=== PATIENT | male | born 1945 | race Caucasian/White ===

== ENCOUNTER 2018-05-23 11:57 | Outpatient (CLI) | payer OTHER, SELFPAY ==
[2018-05-23 13:44] LABS: Anion Gap 8.9 mmol/L (3-11); BUN 19 mg/dL (7-18); CO2 30.1 mmol/L (21.0-32.0); CREATININE 1.14 mg/dL (0.70-1.30); Calcium 9.1 mg/dL (8.5-10.1); Chloride 102 mmol/L (98-107); Cholesterol 157 mg/dL (50-200); Glucose 94 mg/dL (70-100); HDL Cholesterol 49 mg/dL (40-60); LDL CHOLESTEROL 87 mg/dL (<100); Potassium 3.8 mmol/L (3.5-5.1); Sodium 141 mmol/L (136-145); Triglyceride 126 mg/dL (30-150)
== END 2018-05-23 12:17 ==
PROVIDERS: PCP Family Medicine; Visit Provider Family Medicine
DX: I10 Essential (primary) hypertension (principal); E78.5 Hyperlipidemia, unspecified
CPT/HCPCS: 36415; 80048; 80061; 83721

== ENCOUNTER 2018-05-28 00:05 | Outpatient (CLI) | payer OTHER, SELFPAY ==
--- NOTE | 2018-05-28 07:16 | MERGEMPI_ITS ---
*[facility]* *[facility]* [address] [place] [address] Myocardial Perfusion Imaging - SPECT Ezio protocol Date of study: 05/28/2018 *PATIENT PRESENTATION* Height: 167.6cm (66in) Blood Pressure: Weight: 83.2kg (183lb) BSA: 1.99m^2 Referring physician: Boyd Marroquin Ordering physician: Saleem Vazquez Impressions: Normal study after maximal exercise. Summary: 1. Myocardial perfusion imaging: No myocardial perfusion defects noted. 2. The calculated left ventricular ejection fraction after stress: 50%. LV global systolic function is normal. No left ventricular regional motion abnormality. 3. Stress ECG conclusions: The stress ECG is negative. Mackey treadmill score: 7. This score predicts a low risk of cardiac events. 4. Stress: The target heart rate was achieved. The heart rate response to stress is exaggerated. There is a normal resting blood pressure with an appropriate response to stress. Exercise capacity is average for age. Indication: R07.9, Appropriate Use Criteria: A (Appropriate). History: REASON FOR VISIT: FOR PAST 3 WEEKS PATIENT HAS BEEN EXPERIENCING INTERMITTENT PAIN INBETWEEN HIS SHOULDER BLADES, PT IS CONCERNED ABOUT HIS SIGNIFICANT FAMILY HISTORY FOR CARDIAC DISEASE. HIS FATHER HAD SEVERAL NV'S BEFORE HE AT AGE 63 YEARS. HE REPORTS THIS IS WHY HE REQUESTED THIS STRESS TEST FROM HIS PCP. Risk factors: FORMER SMOKER QUIT 40 YEARS AGO. Family history of coronary artery disease. Hypertension. Dyslipidemia. ALLERGIES: NO KNOWN DRUG ALLERGIES. MEDICATIONS: HYDROCHLOROTHIAZIDE 12.5 MG DAILY. PRAVASTATIN 20 MG DAILY. OMEPRAZOLE 40 MG DAILY. Imaging Technique: Protocol: Ezio protocol. Acquisition: Gated SPECT; 1 day - rest/stress. The patient was imaged in the supine position. Attenuation correction used. Isotope administration: - Rest. Tc[99m]-sestamibi. Dose: 10.4mCi. Injection time: 08:20 AM. Injection to stress time: 00:45. - Stress. Tc[99m]-sestamibi. Dose: 32.1mCi. Injection time: 10:35 AM. 1-2 min before end of exercise Baseline ECG: SINUS RHYTHM. HR 61 BPM. Normal ECG. Stress protocol: + +---+ + !Stage !HR !BP (mmHg) ! + +---+ + !Baseline supine !61 !122/76 (91) ! + +---+ + !Baseline standing !69 !145/74 (98) ! + +---+ + !Stage I; 1.7mph, 10degrees; 3 min !118!142/72 (95) ! + +---+ + !Stage II; 2.5mph, 12degrees; 3 min !138!145/74 (98) ! + +---+ + !Stage III; 3.4mph, 14degrees; 3 min!141! ! + +---+ + !Immediate post stress !138!146/78 (101)! + +---+ + !Recovery; 3 min !90 !150/84 (106)! + +---+ + !Recovery; 6 min !80 !154/86 (109)! + +---+ + * Stress results: Maximal heart rate during stress was 156bpm (105% of maximal predicted heart rate). The maximal predicted heart rate was 148bpm. The target heart rate was achieved. The heart rate response to stress is exaggerated. There is a normal resting blood pressure with an appropriate response to stress. The rate-pressure product for the peak heart rate and blood pressure was 25095xu Hg/min. Exercise capacity is average for age. Stress ECG: TREADMILL PORTION OF STRESS TEST ENDED IN 7 MINUTES & 1 SECOND BECAUSE OF FATIGUE. NORMAL HEART RATE AND BLOOD PRESSURE RESPONSE TO EXERCISE. MAX HR = 156 % OF TARGET = 105 NO ECTOPY. APPROXIMATE METS ACHIEVED = 8.60 NO [address]GINA. NO SIGNIFICANT ST SEGMENT CHANGES AVERAGE FUNCTIONAL CAPACITY FOR EXERCISE. The stress ECG is negative. Mackey treadmill score: 7. This score predicts a low risk of cardiac events. Myocardial perfusion: Imaging information: gated. Image quality reduced due to diaphragmatic attenuation. Left ventricular size is normal. No myocardial perfusion defects noted. Ventricular Function (Wall Motion): The calculated left ventricular ejection fraction after stress: 50%. LV global systolic function is normal. No left ventricular regional motion abnormality. Study data: Boyd Marroquin MD supervised and was readily available during the procedure. This study was interpreted by [facility]. Study status: Routine. Consent: The risks, benefits, and alternatives to the procedure were explained to the patient and informed consent was obtained. Procedure: Initial setup. A baseline ECG was recorded. Surface ECG leads and manual cuff blood pressure measurements were monitored. Heart sounds: Normal. Lung sounds: Normal. Treadmill exercise testing was performed using the Ezio protocol. Study completion: All catheters inserted during the procedure were removed. The patient tolerated the procedure well and was discharged from the lab. Discharge: The patient left the laboratory in stable condition. Birthdate: Patient birthdate: 1945. Sex: Gender: male. Study date: Study date: 05/28/2018. Study time: 07:16 AM. Signature Documentation: - The imaging portion of this study was interpreted by [facility] [employer] Supervisor Boyd Marroquin MD. - The Stress ECG portion of this study was interpreted by Boyd Marroquin MD. Electronically signed by Boyd Marroquin 05/28/2018 12:10
== END 2018-05-28 00:25 ==
PROVIDERS: PCP Family Medicine; Visit Provider Family Medicine
DX: R07.9 Chest pain, unspecified (principal); I10 Essential (primary) hypertension; E78.5 Hyperlipidemia, unspecified; Z82.49 Family history of ischemic heart disease and other diseases of the circulatory system; Z87.891 Personal history of nicotine dependence
CPT/HCPCS: 78452; 93016; 93018; 93017

== ENCOUNTER 2018-06-02 12:13 | Outpatient (CLI) | payer OTHER, SELFPAY ==
--- NOTE | 2018-06-02 08:30 | DI.RAD_ITS ---
SYMPTOM/DIAGNOSIS: INTRASCAPULAR CHEST PAIN, R07.89 PA AND LATERAL CHEST: Comparison is made with 05/10/11. Heart size and pulmonary vasculature are within normal limits. The lungs are clear and well expanded. No effusions or pneumothoraces are identified. The bones appear intact. IMPRESSION: No acute pulmonary process.
== END 2018-06-02 12:33 ==
PROVIDERS: PCP Family Medicine; Visit Provider Family Medicine
DX: R07.89 Other chest pain (principal)
CPT/HCPCS: 71046

== ENCOUNTER 2019-05-22 09:46 | Outpatient (CLI) | payer OTHER, SELFPAY | END 2019-05-22 10:06 | PROVIDERS: PCP Family Medicine; Visit Provider Family Medicine | DX: I10 Essential (primary) hypertension (principal) | CPT/HCPCS: 36415; 82565; 84132 ==

== ENCOUNTER 2019-05-26 01:24 | Outpatient (CLI) | payer OTHER, SELFPAY ==
--- NOTE | 2019-05-26 07:00 | DI.US_ITS ---
EXAM: US AAA SCREENING CLINICAL HISTORY: hx of smoking, ? AAA, z87.891 TECHNIQUE: Ultrasound performed using standard protocol. COMPARISON: No exams were available for comparison FINDINGS: Limited abdominal ultrasound was performed to evaluate possibility of abdominal aortic aneurysm. No evidence of abdominal aortic aneurysm. Common iliac arteries are within normal limits in diameter bi laterally. Maximal aortic diameter 2.3 cm, maximum common iliac artery diameter 1.2 cm bilaterally. IMPRESSION:
== END 2019-05-26 01:44 ==
PROVIDERS: PCP Family Medicine; Visit Provider Family Medicine
DX: Z13.6 Encounter for screening for cardiovascular disorders (principal); Z87.891 Personal history of nicotine dependence
CPT/HCPCS: 76706

== ENCOUNTER 2019-07-27 09:01 | Day surgery (SDC) | payer OTHER, SELFPAY ==
--- NOTE | 2019-07-27 06:55 | W.COLOREPORT ---
Date of service: 07/27/19 Time of Service: 10:43 Colonoscopy Report Date of procedure: 07/27/19 Pre-op diagnosis general: Hx of polyps Post-op diagnosis procedure note: other (Polyps) Procedure: Colonoscopy with polypectomy by cold forceps Surgeon: Smiley Headley Anesthesia proc note operative: other (General/ ASA 2/Virginia De La Cruz CRNA) Estimated blood loss (mL): 3 Pathology: other (Ascending polyp, transverse polyp and descending polyp) Complications: None Disposition: same day Indications: 73 y/o male with history of HTN and GERD presents for colonoscopy screening pre-op. His last screening was in 2014, which was remarkable for tubular adenomatous polyps. He denies a family history of colon cancer. He denies any changes in bowel habits including bloody or black tarry stools, abdominal pain, diarrhea or constipation. He denies constitutional symptoms. Risks, benefits and complications have been reviewed. Complications include but are not limited to bleeding, pain, perforation, missed small lesion/polyp, sore throat, aspiration and adverse reaction to the medications. Questions were entertained and answered to their satisfaction and they wished to proceed. No guarantees were given or implied. Prep: Miralax/Dulcolax Procedure Start Time: 10:43 Procedure End Time: 11:10 Retraction Time: 19 minutes Findings: Multiple small sessile polyps Procedure Description: After informed consent was obtained the patient was taken to the procedure room and placed in a left decubitous position. Monitors were applied and a time out was done. The patients name, date of , procedure, allergies to medications and metal in their body was reviewed. The patient was then sedated. Once sedated and comfortable a rectal exam was done. External exam was normal. Internal exam revealed a normal sphincter tone and no palpable masses. The prostate felt smooth. The scope was then introduced and retro-flexed. Grade 1 internal hemorrhoids were identified. The scope was then advanced to the cecum without difficulty. The TI and appendiceal orifice were identified. The prep was good. The scope was then slowly retracted over 19 minutes back into the rectum. Polyps were removed with cold forceps in the ascending, transverse and descending colon. The scope was removed and the patient was woken up and taken back to Same day surgery in stable condition. The patient tolerated the procedure well and there were no immediate complications. Follow up: The patient should follow up in 3 years unless they develop changes in bowel habits or other new gastrointestinal complaints.
--- NOTE | 2019-07-27 06:56 | W.PM.DSUDISC ---
Discharge Plan Disposition Patient Disposition: HOME Condition: Good Discharge Details Reason For Visit: Hx of polyps/ [place] [facility] Scre[facility] Attending Provider: Smiley Headley Primary Care Provider: Saleem Vazquez Home Meds and New Rx's Prescriptions: Continued hydrochlorothiazide 12.5 mg tablet 12.5 mg PO DAILY Qty: 90 RF: 4 omeprazole 40 mg capsule,delayed release(DR/EC) 40 mg PO DAILY Qty: 90 RF: 4 pravastatin 20 mg tablet 20 mg PO HS Qty: 90 RF: 4 aspirin 81 mg tablet,delayed release (DR/EC) 81 mg PO DAILY RF: 0 cyanocobalamin (vitamin B-12) [Vitamin B-12] 1,000 MCG tablet 1,000 mcg PO DAILY RF: 0 epinephrine 0.3 MG/0.3 ML auto-injector 0.3 mg IM ONCE Qty: 2 RF: 1 Discontinued polyethylene glycol 3350 17 gram/dose powder 238 g PO ONCE Qty: 238 RF: 0 bisacodyl [Dulcolax (bisacodyl)] 5 mg tablet,delayed release (DR/EC) 5 mg PO ONCE Qty: 4 RF: 0 Discharge Instructions Instructions: Colorectal Polyps (DC) Additional Instructions: Findings: 3 polyps Follow up: 3-5 years Please call if you develop: fevers >101.5 Nausea or Vomiting Abdominal pain that is not transient DAY SURGERY UNIT POST ENDOSCOPY INSTRUCTIONS 1. Because there will be medication in your system for the next 24 hours, you may feel a little sleepy. Your coordination will be affected. Therefore: a. Do not drive or operate dangerous equipment for 24 hours. b. Do not drink alcohol beverages for 24 hours (not even beer). c. Plan to go home and rest for the day. 2. Generally there are no restrictions on your activity after a day or so has gone by, but you may feel a bit fatigued for a few days. 3 After you arrive home you may have a light meal and return to a normal diet as you can tolerate it without feeling sick to your stomach. 4. After surgery, you may feel pain or discomfort. This should be only transient, but if it persists please contact your doctor. 5. If there are any questions regarding the findings of your procedure, please feel free to contact your doctor. 6. If you are unable to contact your doctor with a problem, contact the hospital at [phone]. 7. Continue all your regular medications unless directed otherwise. I understand the above instructions and have no questions. Signature of Patient or Responsible Adult Escort Date/Time Name of Responsible Adult Escort Signature of Nurse Date/Time Activity:: Activity as Tolerated Diet:: As Tolerated Discharge Orders Discharge Orders: Discharge Order (Routine); Ordered 07/27/19 Ordered By: Smiley Headley
[2019-07-27 09:26] VITALS: BP 148/92; PULSE 86; RESP 16; TEMP 36.2; O2SAT 96
[2019-07-27] MEDS: Lactated Ringers 1,000 ML 80 ML IV (10:04)
--- NOTE | 2019-07-27 10:57 | BOWEL_PTH ---
PATIENT: Alexandru Noel LOC: [facility] U#:[id number] AGE/SX: 73/M ROOM: RE07/27/[address]: Smiley Headley MD : 1945 BED: DIS: 07/27/2019 SPEC #: [id number] RECD: 07/27/19 12:54 STATUS: GUSTAVO REQ #: [id number] DAVIN: 07/27/19 10:[address]: Smiley Headley DEPT: Surgical Specimen RECD BY: Michelle Chinchilla ENTERED: 07/27/19 12:55 SP TYPE: Bowel OTHR DR: Saleem Vazquez MD Tissues: 1 - BIOPSY BOWEL 2 - BIOPSY BOWEL 3 - BIOPSY BOWEL Procedures: GROSS AND MICRO LEVEL 4 Comments: [id number]
[2019-07-27 11:49] VITALS: BP 146/88; PULSE 65; RESP 18; TEMP 36; O2SAT 97
== END 2019-07-27 12:14 | disposition home or self-care (01) ==
LOC: SUR 09:01
PROVIDERS: PCP Family Medicine; Visit Provider Surgery
PROC: 0DJD8ZZ Inspection of Lower Intestinal Tract, Via Natural or Artificial Opening Endoscopic (ICD-10-PCS; CPT 45378; principal; 2019-07-27 10:30)
DX: Z12.11 Encounter for screening for malignant neoplasm of colon (principal); D12.2 Benign neoplasm of ascending colon; D12.3 Benign neoplasm of transverse colon; K63.5 Polyp of colon; K64.0 First degree hemorrhoids; Z86.010 Personal history of colon polyps; I10 Essential (primary) hypertension; K21.9 Gastro-esophageal reflux disease without esophagitis
CPT/HCPCS: 45380; 88305

== ENCOUNTER → 2022-01-05 14:36 | Outpatient (CLI) | payer OTHER, SELFPAY ==
--- NOTE | 2022-01-05 12:15 | DI.RAD_ITS ---
Exam(s) XR KNEE RT 3V AP,LAT,BAR EXAM: XR KNEE RT 3V AP,LAT,BAR CLINICAL HISTORY: PAIN IN RIGHT KNEE--M25.561. TECHNIQUE: 2D digital imaging was performed. Three views. COMPARISON: No exams were available for comparison FINDINGS: BONES: No acute fracture is present. No bony destructive lesion is seen. Enthesophyte superior pole p atella. Calcification adjacent to medial femoral condyle. JOINTS: The knee is normally aligned. No joint effusion is seen. Minimal narrowing medial femoral tib ial joint and minimal periarticular spurring. SOFT TISSUE: Normal. IMPRESSION: Mild degenerative changes. DATA REPOSITORY: RADIATION DOSE DELIVERED:
== END ==
PROVIDERS: PCP Family Medicine; Visit Provider Physician Assistant
DX: M17.11 Unilateral primary osteoarthritis, right knee (principal)
CPT/HCPCS: 73562

== ENCOUNTER → 2022-04-02 02:04 | Outpatient (CLI) | payer OTHER, SELFPAY ==
--- NOTE | 2022-04-02 07:00 | DI.MRI_ITS ---
Exam(s) MR LOWER JOINT RT WO EXAM: MR LOWER JOINT RT WO CLINICAL HISTORY: pain,INTERNAL DERANGEMENT OF RT KNEE, M23.91 TECHNIQUE: Multiplanar multisequence MRI of the knee was performed. COMPARISON: CR XR KNEE RT 3V AP,LAT,BAR from 01/05/2022 FINDINGS: EFFUSION: There is a small knee joint effusion. There is a large Santacruz cyst in the medial popliteal fossa with craniocaudal length of 9 cm and AP measurement 1 cm. Maximum with this 2.5 cm. MARROW:There is no evidence of fracture, bone contusion, nor osteochondral defects.. There are no si gnificant osseous lesions. PATELLOFEMORAL COMPARTMENT: The quadriceps tendon is intact. The patellar ligament is intact. There is mild surface irregularity of the retropatellar cartilage but without prominent thinning at n or deep fissure. No osteochondral defect. No abnormal signal in the patella.There is no intraosseou s signal to suggest recent patellar dislocation. There are no patellar retinacular tears. CRUCIATE LIGAMENTS: The anterior cruciate ligament is intact.The posterior cruciate ligament is intac t. MEDIAL COMPARTMENT/MEDIAL MENISCUS: There is a complex tear in the posterior horn of the medial menis cus.Exhibits horizontal and element of bucket-handle configuration. Mild elbow ordered screw wilkerson. No meniscocapsular separation. The anterior horn of the medial meniscus appears intact although with mild extrusion.. There is mild abnormal signal in the cartilage over the medial condyle but no osteochondral defect no r subarticular intraosseous edemaevident. MEDIAL COLLATERAL LIGAMENT: Mild sprain signal but no high-grade tear. LATERAL COMPARTMENT/LATERAL MENISCUS: There is an undersurface tear in the medial 3rd of the posterio r horn of the lateral meniscus adjacent to the root. Anterior horn appears intact. there are no cho ndral defects, osteochondral defects, subarticular marrow edema, nor osteophytes evident. ILIOTIBIAL BAND: Intact LATERAL COLLATERAL LIGAMENT COMPLEX: The fibular collateral ligament is intact. The biceps femoris t endon is intact.Popliteus muscle and tendon are intact. IMPRESSION: 1. There are tears of the posterior horns of both menisci, as described above. 2. Only mild degenerative changes in all 3 compartments. 3. Mild chondromalacia patella 4. Cruciate and collateral ligaments are intact although there is some mild increased signal in the M CL. 5. Small joint effusion. Prominent Santacruz's cyst in the medial popliteal fossa with measurements as above, including cephalocaudal length 9 cm DATA REPOSITORY:
== END ==
PROVIDERS: PCP Family Medicine; Visit Provider Student in an Organized Health Care Education/Training Program
DX: S83.241A Other tear of medial meniscus, current injury, right knee, initial encounter (principal); S83.281A Other tear of lateral meniscus, current injury, right knee, initial encounter; X58.XXXA Exposure to other specified factors, initial encounter; M71.21 Synovial cyst of popliteal space [Baker], right knee; M25.461 Effusion, right knee; M22.41 Chondromalacia patellae, right knee
CPT/HCPCS: 73721

== ENCOUNTER 2022-05-01 11:31 | Day surgery (SDC) | payer OTHER, SELFPAY ==
[2022-05-01] VITALS (8 sets, daily range): BP systolic 131–168; BP diastolic 74–98; PULSE 63–70; RESP 12–16; TEMP 35.9–36.4; O2SAT 91–98; BMI 29.4
[2022-05-01] MEDS: Celecoxib 200 MG CAP 400 MG PO (12:39)
[2022-05-01] MEDS: Acetaminophen 500 MG TAB 1000 MG PO (12:39)
[2022-05-01] MEDS: Lactated Ringers 1,000 ML 80 ML IV (12:55)
--- NOTE | 2022-05-01 13:08 | W.ANESPRE ---
General Info Date of Service Date Performed: 05/01/22 Height: 5 ft 6 in Weight: 82.6 kg Body Mass Index (BMI): 29.4 Surgical Procedure: Operation Date: 05/01/22 14:10 Proposed Procedure Side Surgeon p Knee Arthroscopy w/Partial Medial & Lateral Menisectomy Right Jareth Curiel MD Meds Allergies and Home Medications Allergies Allergy/AdvReac Type Severity Reaction Status Date / Time bee pollen Allergy Severe Anaphylaxsi Verified 05/01/22 12:24 s influenza virus vaccine, Allergy Severe High Verified 05/01/22 12:24 specific fever, hallucinations nickel Allergy Skin Rash Verified 05/01/22 12:24 simvastatin AdvReac Intermediate MYALGIAS Verified 05/01/22 12:24 Maple leaves Allergy Uncoded 05/01/22 12:24 Home Medication Medication Instructions Recorded cyanocobalamin (vitamin B-12) 1,000 mcg PO DAILY 04/11/13 1,000 mcg tablet (Vitamin B-12) epinephrine 0.3 mg/0.3 mL 0.3 mg IM ONCE #2 pens 04/11/13 injection, auto-injector latanoprost 0.005 % eye drops 1 drp ophthalmic (eye) DAILY 05/24/20 cholecalciferol (vitamin D3) 125 125 mcg PO DAILY 05/30/21 mcg (5,000 unit) tablet hydrochlorothiazide 25 mg tablet 25 mg PO DAILY #90 tabs 07/10/21 omeprazole 40 mg capsule,delayed 40 mg PO DAILY #90 tab-caps 08/07/21 release pravastatin 20 mg tablet 20 mg PO HS #90 tab-caps 08/07/21 ibuprofen 200 mg tablet 200 mg 05/01/22 Current Visit Medications: Current Medications Generic Name Dose Route Start Last Admin Trade Name Freq PRN Reason Stop Dose Admin Acetaminophen 1,000 mg 05/01/22 06:00 05/01/22 12:39 Acetaminophen 500 Mg Tab PO 05/01/22 16:00 1,000 mg PREOP LETICIA Administration Celecoxib 400 mg 05/01/22 06:00 05/01/22 12:39 Celecoxib 200 Mg Cap PO 05/01/22 16:00 400 mg PREOP LETICIA Administration Ringer's Solution 1,000 mls @ 80 mls/hr 05/01/22 06:00 05/01/22 12:55 IV 05/30/22 23:59 80 mls/hr INFUSION LETICIA Administration Cefazolin Sodium/Dextrose 2 gm in 50 mls @ 100 mls/hr 05/01/22 06:00 Ancef Duplex IVPB 05/01/22 16:00 PREOP LETICIA IV Miscellaneous Supplies 1 each 05/01/22 06:00 Iv Access IV 05/30/22 23:59 DIRECTED LETICIA Sodium Chloride 0 ml 05/01/22 06:00 Normal Saline Flush 10 Ml Syr IV 05/30/22 23:59 PRN PRN Sodium Chloride 0 ml 05/01/22 06:00 Normal Saline 10 Ml Vial IJ 05/30/22 23:59 DIRECTED PRN Sterile Water 0 ml 05/01/22 06:00 Water,Injection,Sterile 10 Ml Vial IJ 05/30/22 23:59 DIRECTED PRN PFSH Active Problems Active Problems: Problem Status Onset Code Hearing loss H91.90 Sensorineural hearing loss (SNHL) of both ears H90.3 History of tobacco use Z87.891 Status post inguinal hernia repair Z98.890, Z87.19 Status post rotator cuff repair Z98.890 Internal derangement of right knee M23.91 Tear of medial meniscus of right knee S83.241A Tear of lateral meniscus of right knee S83.281A Medical History Medical History (Updated 05/01/22 @ 12:29 by Joanna Shepard) 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 Randolph; H/O left shoulder rotator tendonitis Surgical History Surgical History Repair of inguinal hernia B/L Rotator Cuff Repair 2006 2007 S/P colonoscopy (~07/27/19) 2015- Tubular adenoma Tobacco Smoking/Tobacco Use Status: Former Tobacco Use Passive smoking exposure: Yes Second hand exposure: Yes Alcohol Alcohol Intake: former Substance Use Substance use: Never Substance use type: does not use Vital Signs and Lab Results Vital Signs Most Recent Vital Signs in EMR: Most Recent Vital Signs Temp Pulse Resp BP Pulse Ox 36.4 C L 65 16 158/87 H 95 05/01/22 12:32 05/01/22 12:32 05/01/22 12:32 05/01/22 12:32 05/01/22 12:32 Lab Results Blood Type / Crossmatch: No Data to Display Complete Blood Count: No Data to Display Complete Metabolic Panel: No Data to Display Liver Function Panel: No Data to Display Coagulation Panel: No Data to Display Cardiac Panel: No Data to Display Arterial Blood Gas: No Data to Display Venous Blood Gas: No Data to Display Pancreas Panel: No Data to Display Thyroid Panel: No Data to Display Infectious Disease: No Data to Display Blood Cultures: No Data to Display Toxicology Panel: No Data to Display Anesthesia Assessment and Plan Anesthesia History Personal History: No History of Anesthesia Complications Family History: No Family History of Anesthesia Complications Exercise Tolerance Exercise Tolerance: Metabolic Equivalents>4 Pertinent Negatives Pertinent Negatives: No Symptoms of GERD (Well controlled with medication ), No Major Cardiovascular Symptoms or Complaints, No Major Pulmonary Symptoms or Complaints (1974) and No History of CVA/TIA Cardiac & Pulmonary Exam Cardiac Exam: Normal S1/S2 Heart Sounds Pulmonary Exam: Clear Bilateral Breath Sounds Implantable Cardiac Device Does patient have a Pacemaker or an ICD?: No Airway Exam Known Difficult Airway: No Mallampati Class: 1 Mouth Opening: Normal (> 3cm) Thyromental Distance: Greater than 3 cm Neck Range of Motion: Full ROM Neck Circumference: Normal Teeth Condition: Normal Dentition and Removable Dentures/Plates Upper (Partial ) Airway Comments: #41 chipped ASA Classification ASA Score: ASA 2 Emergency Case?: No NPO Status NPO Status: NPO Clears >2 hours, Solids >8 hours Anesthesia Plan Resuscitation Status: Full Code Anesthesia Technique: General Anesthesia Airway Planned: Natural Airway Monitors Used: Standard Monitors
--- NOTE | 2022-05-01 13:48 | W.PREOPHP ---
Assessment and Plan Assessment and plan (1) Tear of medial meniscus of right knee: Status: Acute (2) Tear of lateral meniscus of right knee: Status: Acute Assessment and plan: Right knee arthroscopy with partial medial and lateral menisectomy, Details of surgery were discussed with patient as well as risks and pertinent anatomy. All questions were answered. History of Present Illness History of Present Illness Chief Complaint: Right knee pain Narrative: Alexandru is a 76-year-old male who comes in today for a right knee arthroscopy with partial medial and lateral menisectomy. He has been complaining of right knee pain for quite some time and it bothers him when he is involved in weightbearing activities. He also has started to notice some snapping in his knee. An MRI was performed which showed a tear of both the medial and lateral menisci. Since he has failed conservative treatment he has elected to move forward with a righ tkne arthroscopy. Review of Systems Constitutional Constitutional: Denies fever(s) ENT Ears, Nose, Mouth, and Throat: Denies dizziness and Denies sore throat Cardiovascular Cardiovascular: Denies chest pain, Denies palpitations and Denies dyspnea Respiratory Respiratory: Denies cough and Denies dyspnea Gastrointestinal Gastrointestinal: Denies abdominal pain, Denies melena, Denies hematochezia, Denies diarrhea, Denies nausea and Denies vomiting Genitourinary Genitourinary: Denies hematuria and Denies dysuria Neurologic Neurologic: Denies dizziness Endocrine Endocrine: Denies palpitations PFSH All Active Problems (Updated 05/01/22 @ 12:29 by Joanna Shepard) Hearing loss (Acute) Sensorineural hearing loss (SNHL) of both ears (Acute) History of tobacco use (Chronic) Status post inguinal hernia repair (Chronic) Status post rotator cuff repair (Chronic) Internal derangement of right knee (Acute) Tear of medial meniscus of right knee (Acute) Tear of lateral meniscus of right knee (Acute) Medical History (Updated 05/01/22 @ 12:29 by Joanna Shepard) 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 Randolph; H/O left shoulder rotator tendonitis Surgical History Repair of inguinal hernia B/L Rotator Cuff Repair 2006 2007 S/P colonoscopy (~07/27/19) 2015- Tubular adenoma Family History Mother , age 69 Essential hypertension Substance abuse Hyperlipidemia Smoker COPD (chronic obstructive pulmonary disease) Father , age 63 Essential hypertension Substance abuse Heart disease Hyperlipidemia Smoker Sister , age 67 Hemochromatosis S/P LIVER TRANSPLANT Lung cancer AAA (abdominal aortic aneurysm) Sister , age 68 Alcohol abuse Smoker Hyperlipidemia Maternal Grandfather Heart disease Paternal Grandfather Heart disease Brother No problems noted. Sister No problems noted. Brother No problems noted. Social History Smoking/Tobacco Use Status: Former Tobacco Use tobacco type: cigarettes and smokeless tobacco Quit Date: 05/27/74 Tobacco: How many years used: 30 Second Hand Exposure: Yes Smoking risk assessment performed?: Yes Alcohol Intake: former Drug use: Never Substance use type: does not use Caregiver/Support person: No Household members: spouse Housing: house Communication Needs: None Do you need help understanding health information?: Never Pets and animals: Yes Pets and animals: cat(s) Do you think of yourself as: straight/heterosexual Current gender identity: male What is your relationship status?: How often do you talk on the phone with friends or family?: twice per week How often do you get together with friends or relatives?: once per week How often do you attend amish or sabianism services?: decline to answer Do you belong to any clubs or organized social groups?: no Panel score (0-1 are the most socially isolated patients): 2 What type of physical activity do you participate in: walking and other Details: FORESTRY Duration: > 90 minutes/day Frequency: 5-6 times per week Ashely/Christian: Synagogue Special ashely needs: No Seatbelt use: always Helmet use: Yes Helmet use: always Drive intox or ride w/intox cdl b driver: No Do you feel safe at home: Yes Additional Social history: unable to assess privately Meds Allergies and Home Medications Allergies Allergy/AdvReac Type Severity Reaction Status Date / Time bee pollen Allergy Severe Anaphylaxsi Verified 05/01/22 12:24 s influenza virus vaccine, Allergy Severe High Verified 05/01/22 12:24 specific fever, hallucinations nickel Allergy Skin Rash Verified 05/01/22 12:24 simvastatin AdvReac Intermediate MYALGIAS Verified 05/01/22 12:24 Maple leaves Allergy Uncoded 05/01/22 12:24 Home Medications Medication Instructions Recorded Confirmed Type cyanocobalamin (vitamin B-12) 1,000 mcg PO DAILY 04/11/13 05/01/22 History 1,000 mcg tablet (Vitamin B-12) epinephrine 0.3 mg/0.3 mL 0.3 mg IM ONCE #2 pens 04/11/13 05/01/22 History injection, auto-injector latanoprost 0.005 % eye drops 1 drp ophthalmic (eye) DAILY 05/24/20 05/01/22 History cholecalciferol (vitamin D3) 125 125 mcg PO DAILY 05/30/21 05/01/22 History mcg (5,000 unit) tablet hydrochlorothiazide 25 mg tablet 25 mg PO DAILY #90 tabs 07/10/21 05/01/22 Rx omeprazole 40 mg capsule,delayed 40 mg PO DAILY #90 tab-caps 08/07/21 05/01/22 Rx release pravastatin 20 mg tablet 20 mg PO HS #90 tab-caps 08/07/21 05/01/22 Rx ibuprofen 200 mg tablet 200 mg 05/01/22 History Exam Const General: cooperative and no acute distress Orientation: alert and awake [facility] Head: normocephalic and atraumatic Eyes Conjunctivae: conjunctivae normal Sclera: sclerae normal Resp Effort & Inspection: normal respiratory effort Auscultation: clear to auscultation bilaterally and no wheezes Cardio Rate: regular rate Rhythm: regular rhythm Heart Sounds: S1 normal, S2 normal and no murmurs Results Last Vital Signs Temp 97.5 F L 05/01/22 12:32 Pulse 65 05/01/22 12:32 Resp 16 05/01/22 12:32 BP 158/87 H 05/01/22 12:32 Pulse Ox 95 05/01/22 12:32
[2022-05-01] MEDS: EPINEPHrine 30 MG/30 ML VIAL (14:00)
[2022-05-01] MEDS: Bupivacaine 0.5% Pres-Free 30 ML VIAL (14:00)
--- NOTE | 2022-05-01 14:07 | W.PM.DSUDISC ---
Date of service: 05/01/22 Time of Service: 14:07 Discharge Plan Disposition Patient Disposition: HOME Condition: Good Discharge Details Attending Provider: Jareth Curiel Primary Care Provider: Saleem Vazquez Home Meds and New Rx's Prescriptions: New tramadol 50 mg tablet 50 mg PO BID PRNQty: 4 0RF acetaminophen 500 mg tablet 1,000 mg PO TID Qty: 90 0RF ibuprofen 600 mg tablet 600 mg PO TID PRN (Reason: pain) Qty: 90 0RF Continued cholecalciferol (vitamin D3) 125 mcg (5,000 unit) tablet 125 mcg PO DAILY latanoprost 0.005 % drops 1 drp ophthalmic (eye) DAILY cyanocobalamin (vitamin B-12) [Vitamin B-12] 1,000 MCG tablet 1,000 mcg PO DAILY epinephrine 0.3 MG/0.3 ML auto-injector 0.3 mg IM ONCE Qty: 2 Label Comments: pt. has not had to use Rx Instructions: PRN FOR ANAPHYLAXIS hydrochlorothiazide 25 mg tablet 25 mg PO DAILY Qty: 90 3RF omeprazole 40 mg capsule,delayed release(DR/EC) 40 mg PO DAILY Qty: 90 4RF pravastatin 20 mg tablet 20 mg PO HS Qty: 90 4RF Discontinued ibuprofen 200 mg Tablet 200 mg Discharge Instructions Stand Alone Forms: Anesthesia Discharge Inst., Barrera Gregory ([facility]), [facility] Knee Arthroscopy Referrals: Jareth Curiel MD [ [facility] STAFF PHYSICIAN] - Equipment/Supplies: Partial Weight Bearing Crutches Activity:: Activity as Tolerated Remove Dressings/Wound Care:: 72 hours Shower/Bathe:: 72 hours Diet:: As Tolerated DS: Diagnosis Discharge Diagnosis (1) Tear of medial meniscus of right knee: Status: Acute (2) Tear of lateral meniscus of right knee: Status: Acute
[2022-05-01] MEDS: ceFAZolin 2 GM/50 ML BAG IVPB (14:11)
--- NOTE | 2022-05-01 15:20 | W.ANESPOSTOP ---
Postoperative Evaluation Date, Time and Location Date Performed: 05/01/22 Time Performed: 15:20 Patient Location: PACU Vital Signs Most Recent Imported Vital Signs: Most Recent Vital Signs Temp Pulse Resp BP Pulse Ox 36.4 C L 66 14 157/91 H 97 05/01/22 15:05 05/01/22 15:05 05/01/22 15:05 05/01/22 15:05 05/01/22 15:05 Pain Score Most Recent Pain Score: Most Recent Pain Score Pain Level 0 05/01/22 15:05 Assessment Mental Status: Awake (Alert & Oriented to Patient Baseline) Airway and Respiratory Function: Patent airway with normal (patient baseline) respiratory exam Cardiovascular Function: Hemodynamically Stable Hydration Status: Adequately Hydrated Nausea & Vomiting: No Nausea or Vomiting Pain: Pt. Denies Any Pain Peripheral Nerve Block: Patient did not receive a nerve block
--- NOTE | 2022-05-01 18:27 | W.PM.OP ---
Date of service: 05/01/22 Time of Service: 14:45 Operative Note Operative Note DATE OF PROCEDURE: 05/01/22 PRE-OP DIAGNOSIS: Right knee medial and lateral meniscus tears POST-OP DIAGNOSIS: same PROCEDURE: Right knee arthroscopic partial medial and lateral meniscectomy SURGEON: Jareht Curiel ANESTHESIA TYPE: General LMA/ETT Refer to Anesthesia Record ESTIMATED BLOOD LOSS: 0 PATHOLOGY: none sent COMPLICATIONS: None Patient was transported to: PACU Patient's condition: stable Indications: I have seen Alexandru in clinic for symptoms of a meniscus tear. This was confirmed based on MRI and exam findings. Nonoperative measures were exhausted but disability and pain persisted. I discussed knee arthroscopy with meniscal intervention with the patient. I reviewed the risks of the procedure to include, but not limited to, bleeding, infection, pain, stiffness, damage to nerves or vessels, recurrence, blood clot. Despite these risks, the patient elected to proceed. Findings: A diagnostic arthroscopy was performed with the following findings: Suprapatellar Pouch: Mild inflammation, No loose bodies Medial Compartment: Complex medial meniscal tear involving the posterior meniscal root, the posterior horn and body, and the anterior horn. There was a chondral flap over the lateral aspect of the medial femur and diffuse grade 2 changes of the tibia and the femur with some areas of grade III chondromalacia Notch: ACL and PCL were intact Lateral Compartment: Complex tear at the posterior lateral meniscus at the level of the root, partially torn posterior meniscal root, no significant chondromalacia or signs of arthritis, no loose bodies Patellofemoral Compartment: No significant chondromalacia, no apparent patellar maltracking Procedure Description: Alexandru was greeted in the preoperative holding area where the correct side was identified and marked. The consent was reviewed with the patient and signed. The history and physical was updated. All questions were answered. Alexandru was taken back to the operating room. The patient was placed into the supine position on the operating room table. All bony prominences were well padded. Prophylactic antibiotics in the form of cefazolin were administered. The right leg was then prepped with Chloraprep and draped in a standard fashion with stockinette and extremity drape. A timeout to confirm correct identity, side and site, procedure, allergies, anesthesia, and medical concerns was performed. The leg was placed into a pneumatic leg rothman, [id number]. A standard lateral portal was made at the lateral border of the patella tendon in line with the inferior pole of the patella, soft spot. The skin and deep tissue was incised sharply and the blunt trochar was inserted atraumatically. A diagnostic arthroscopy was performed and the findings are listed above. The suprapatellar pouch had mild to moderate inflammatory changes. The patellofemoral articulation showed no articular damage as well as good tracking. The lateral gutter had no loose bodies and the medial gutter had no loose bodies. The knee was brought into some valgus stress in extension to open the medial compartment. A medial portal was made, localized by a spinal needle. The portal was created with an #11 blade through skin and capsule under direct visualization avoiding any meniscal injury. A probe was then inserted into the medial compartment. The medial compartment was fully inspected. The chondral surface of the tibia showed grade II chondromalacia and the surface of the femur showed grade II chondromalacia with some areas of grade 3 and a loose flap seen over the lateral aspect of the medial femur near the notch. The medial meniscus had a complex meniscal tear involving the posterior root with a horizontal and complex tear which extended into the posterior horn and body. There also was a displaced tear of the anterior horn of the medial meniscus. After evaluation, the meniscus was debrided down to a stable base using a series of biters and arthroscopic dilcia. It was probed afterwards to confirm that the tear had been removed and the meniscus was stable. Cartilage surfaces were debrided of any flaps, leaving any intact fibers. The notch was then inspected which showed an intact ACL and an intact PCL. The leg was then brought into a figure of 4 position. The lateral compartment was fully inspected with the arthroscope and a probe. The chondral surface of the lateral femur showed no significant chondromalacia. The chondral surface of the lateral tibia showed no significant chondromalacia. The lateral meniscus had a complex tear involving the posterior root. After evaluation, the meniscus was debrided down to a stable base using a series of biters and arthroscopic dilcia. It was probed afterwards to confirm that the tear had been removed and the meniscus was stable. The arthroscope was brought back into the suprapatellar pouch and the leg was in full extension. The knee was thoroughly irrigated with the arthroscopic fluid on high flow and pressure. Inflow was stopped and excess fluid was removed. The wounds were closed with 4-0 Nylon. They were dressed with Xeroform, 4x4 gauze, ABD pad, Kerlix and an TYLER wrap. A cryo-cuff was applied. The patient tolerated the procedure well and was returned to the Same Day Surgery area in a stable condition suffering no known complication.
== END 2022-05-01 16:35 | disposition home or self-care (01) ==
PROVIDERS: PCP Family Medicine; Visit Provider Student in an Organized Health Care Education/Training Program
PROC: (CPT 29870; principal; 2022-05-01 14:00)
DX: S83.241A Other tear of medial meniscus, current injury, right knee, initial encounter (principal); S83.271A Complex tear of lateral meniscus, current injury, right knee, initial encounter; X58.XXXA Exposure to other specified factors, initial encounter; I10 Essential (primary) hypertension; E78.5 Hyperlipidemia, unspecified
CPT/HCPCS: 29880; J0690; J1100; J2250; J2405

== ENCOUNTER 2022-08-22 20:06 | Emergency (ER) | payer OTHER, SELFPAY ==
[2022-08-22 20:10] VITALS: BP 150/91; PULSE 79; RESP 18; TEMP 36.5; O2SAT 97
--- NOTE | 2022-08-22 20:46 | W.ED.GENAD ---
Discharge Plan Disposition Patient Disposition: Home Discharge Details Clinical Impression: Diarrhea Primary Care Provider: Saleem Vazquez ED Provider: Des Arceo Home Meds and New Rx's Prescriptions: New ciprofloxacin HCl 500 mg tablet 500 mg PO BID Qty: 10 0RF Continued cholecalciferol (vitamin D3) 125 mcg (5,000 unit) tablet 125 mcg PO DAILY hydrochlorothiazide 25 mg tablet 25 mg PO DAILY Qty: 90 3RF omeprazole 40 mg capsule,delayed release(DR/EC) 40 mg PO DAILY Qty: 90 4RF pravastatin 20 mg tablet 20 mg PO HS Qty: 90 4RF latanoprost 0.005 % drops 1 drp ophthalmic (eye) DAILY Qty: 7.5 5RF cyanocobalamin (vitamin B-12) [Vitamin B-12] 1,000 MCG tablet 1,000 mcg PO DAILY epinephrine 0.3 MG/0.3 ML auto-injector 0.3 mg IM ONCE Qty: 2 Patient Comments: pt. has not had to use Rx Instructions: PRN FOR ANAPHYLAXIS Discharge Instructions Instructions: Acute Diarrhea (ED) Additional Instructions: if not improving within a week follow up with your primary care provider return to the emergency department for severe abdominal pain, if you feel more ill or have persistent vomiting Medical Decision Making 76 yo male with hx of htn and hld who comes in with 5 days of watery diarrhea multiple times a day. He states his first day with these symptoms he had n/v but none since. He denies fevers, no recent travle, no known sick contacts. He denies abdominal pain. HE arrives stable and appears well speaking clearly in no distress. He has a soft nontender abdomen, moist mucous membranes. Given lack of abdominal pain or continued n/v doubt surgical pathology and do not feel imaging indicated. Given it has almost been a week of symptoms will start him on cipro and also obtain c diff and fecal bacterial pathogens pt still without painand feels well, hasn't been able to provide stool sample, doesn't want to stay until he can provide one so will provide outpatient order for him to return to the lab. Advised to f/u with pcp, return precautions given. Will start him on cipro given almost a week of diarrhea. Differential Diagnosis Differential Diagnosis: infectious vs toxic diarrhea HPI General Mode of arrival: ambulatory. Date/Time Provider Initiated Documentation: 08/22/22 20:11. Limitations to Documentation: no limitations. Information obtained by: patient. History of Present Illness 76 year old M presents to the emergency department with the chief complaint of diarrhea, described as moderate, Patient started experiencing this day(s) (5) and it has been constant. No relieving factors improve symptom(s), No exacerbating factors reported . Patient notes no other symptoms.; denies fever/chills and nausea/vomiting. Patient did receive the following treatments prior to arrival, none Related Data Home Medications Medication Instructions Recorded Confirmed cyanocobalamin (vitamin B-12) 1,000 mcg PO DAILY 04/11/13 05/31/22 1,000 mcg tablet (Vitamin B-12) epinephrine 0.3 mg/0.3 mL 0.3 mg IM ONCE #2 pens 04/11/13 05/31/22 injection, auto-injector cholecalciferol (vitamin D3) 125 125 mcg PO DAILY 05/30/21 05/31/22 mcg (5,000 unit) tablet hydrochlorothiazide 25 mg tablet 25 mg PO DAILY #90 tabs 05/31/22 05/31/22 latanoprost 0.005 % eye drops 1 drp ophthalmic (eye) DAILY #7.5 05/31/22 05/31/22 mL omeprazole 40 mg capsule,delayed 40 mg PO DAILY #90 tab-caps 05/31/22 05/31/22 release pravastatin 20 mg tablet 20 mg PO HS #90 tab-caps 05/31/22 05/31/22 ciprofloxacin HCl 500 mg tablet 500 mg PO BID #10 tabs 08/22/22 Previous Rx's Medication Instructions Recorded hydrochlorothiazide 25 mg tablet 25 mg PO DAILY #90 tabs 05/31/22 latanoprost 0.005 % eye drops 1 drp ophthalmic (eye) DAILY #7.5 05/31/22 mL omeprazole 40 mg capsule,delayed 40 mg PO DAILY #90 tab-caps 05/31/22 release pravastatin 20 mg tablet 20 mg PO HS #90 tab-caps 05/31/22 ciprofloxacin HCl 500 mg tablet 500 mg PO BID #10 tabs 08/22/22 Allergies Allergy/AdvReac Type Severity Reaction Status Date / Time bee pollen Allergy Severe Anaphylaxsi Verified 05/31/22 10:21 s influenza virus vaccine, Allergy Severe High Verified 05/31/22 10:21 specific fever, hallucinations nickel Allergy Skin Rash Verified 05/31/22 10:21 simvastatin AdvReac Intermediate MYALGIAS Verified 05/31/22 10:21 Maple leaves Allergy Uncoded 05/31/22 10:21 General Stated Complaint: Nausea/Vomit/Diar JULIANNA: 3 Review of Systems All systems reviewed & are unremarkable except as noted in HPI and below Constitutional Constitutional: Denies chills, Denies fever(s) and Denies weakness Cardiovascular Cardiovascular: Denies chest pain and Denies dyspnea Respiratory Respiratory: Denies cough and Denies dyspnea Gastrointestinal Gastrointestinal: Denies abdominal pain, Denies nausea and Denies vomiting Integumentary/Breasts Skin/Breast: Denies rash Neurologic Neurologic: Denies weakness PFSH All Active Problems (Updated 08/22/22 @ 21:33 by Des Arceo MD) Diarrhea (Acute) Hearing loss (Acute) Sensorineural hearing loss (SNHL) of both ears (Acute) History of tobacco use (Chronic) Status post inguinal hernia repair (Chronic) Status post rotator cuff repair (Chronic) Internal derangement of right knee (Acute) Medical History 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 Randolph; H/O left shoulder rotator tendonitis Surgical History Repair of inguinal hernia B/L Rotator Cuff Repair 2006 2007 S/P colonoscopy (~07/27/19) 2015- Tubular adenoma Family History Mother , age 69 Essential hypertension Substance abuse Hyperlipidemia Smoker COPD (chronic obstructive pulmonary disease) Father , age 63 Essential hypertension Substance abuse Heart disease Hyperlipidemia Smoker Sister , age 67 Hemochromatosis S/P LIVER TRANSPLANT Lung cancer AAA (abdominal aortic aneurysm) Sister , age 68 Alcohol abuse Smoker Hyperlipidemia Maternal Grandfather Heart disease Paternal Grandfather Heart disease Brother No problems noted. Sister No problems noted. Brother No problems noted. Social History (Updated 06/01/22 @ 15:09 by Samira Cotton) Smoking/Tobacco Use Status: Former Tobacco Use (Quit 1987) tobacco type: cigarettes and smokeless tobacco Quit Date: 05/27/74 Tobacco: How many years used: 35 Second Hand Exposure: Yes Smoking risk assessment performed?: Yes Alcohol Intake: former Drug use: Never Substance use type: does not use Caregiver/Support person: No Household members: spouse Housing: house Communication Needs: None Do you need help understanding health information?: Rarely Pets and animals: Yes Pets and animals: cat(s) Sexually active: No Do you think of yourself as: straight/heterosexual Current gender identity: male What is your relationship status?: How often do you talk on the phone with friends or family?: twice per week How often do you get together with friends or relatives?: twice per week How often do you attend jain or shinto services?: decline to answer Do you belong to any clubs or organized social groups?: yes Panel score (0-1 are the most socially isolated patients): 3 What type of physical activity do you participate in: walking and other Details: FORESTRY Duration: > 90 minutes/day Frequency: 5-6 times per week Ashely/Anglican: No preference Special ashely needs: No Seatbelt use: always Helmet use: Yes Helmet use: always Drive intox or ride w/intox mobile lounge driver or operator: No Do you feel safe at home: Yes Additional Social history: unable to assess privately Exam Const General: no acute distress Orientation: alert HENMI Head: normal to inspection Ears: external ears normal General nose exam: external nose normal Mouth: moist mucous membranes Eyes General: appearance normal, both eyes and all related structures Neck Neck: normal visual inspection Resp Effort & Inspection: normal respiratory effort and able to speak in complete sentences Cardio Rate: regular rate GI Palpation: soft and nontender Skin General skin exam: no rashes or lesions noted Neuro General: patient alert and patient oriented x3 Extrem General: normal to inspection Psych Mental Status: mental status grossly normal Course Vital Signs Vital signs: Vital Signs Temperature 36.5 C 08/22/22 20:10 Pulse 79 08/22/22 20:10 Respiratory Rate 18 08/22/22 20:10 Blood Pressure 150/91 H 08/22/22 20:10 Pulse Oximetry 97 08/22/22 20:10 Temperature 36.5 C 08/22/22 20:10 Temperature Source Oral 08/22/22 20:10 Pulse 79 08/22/22 20:10 Respiratory Rate 18 08/22/22 20:10 Blood Pressure 150/91 H 08/22/22 20:10 Blood Pressure Position Sitting 08/22/22 20:10 Pulse Oximetry 97 08/22/22 20:10 Oxygen Delivery Method Room Air 08/22/22 20:10 Oxygen Flow Rate 0 08/22/22 20:10
[2022-08-22] MEDS: Ciprofloxacin 500 MG TAB PO (20:53)
--- NOTE | 2022-08-27 11:00 | NUR.NOTE ---
Nursing Note: Lab called stating that the stool brought in was formed so they are unable to test for cdiff/ the wrong collection container was given for the fecal PCR test so they are also unable to process that test also.
== END 2022-08-22 22:11 | disposition home or self-care (01) ==
PROVIDERS: Emergency Provider Emergency Medicine; PCP Family Medicine
DX: R19.7 Diarrhea, unspecified (principal)
CPT/HCPCS: 87493; 87505; 99283; 99282

== ENCOUNTER 2023-11-18 10:56 | Emergency (ER) | payer OTHER, SELFPAY ==
[2023-11-18] VITALS (13 sets, daily range): BP systolic 143–178; BP diastolic 82–90; PULSE 51–69; RESP 13–20; TEMP 37; O2SAT 96–98
--- NOTE | 2023-11-18 11:00 | RT.EKG_ITS ---
APPROVED REPORT Exam: Resting ECG Reason for Exam: dizziness Patient Location: E HR:60 bpm ECG Measurements Heart Rate 60 AXIS CA 168 P 43 QRSd 80 QRS 31 QT 374 T 48 QTc 376 Conclusion Sinus rhythm 60 no stemi
[2023-11-18 11:44] LABS: Abs Immature Grans 0.02 10^3/uL (0.0-0.06); Absolute Basophil Count 0.03 10^3/uL (0.0-0.2); Absolute Eosinophil Count 0.29 10^3/uL (0.0-0.7); Absolute Lymphocyte Count 1.52 10^3/uL (1.2-3.4); Absolute Monocyte Count 0.52 10^3/uL (0.1-0.8); Absolute Neutrophil Count 4.25 10^3/uL (1.2-6.7); Basophils % 0.5 %; Eosinophils % 4.4 %; HCT 43.1 % (40.0-50.0); HGB 14.5 g/dL (13.5-17.5); Immature Grans % 0.3 %; Lymphocytes % 22.9 %; MCH 30.1 pg (27.0-33.0); MCHC 33.6 % (32.0-36.0); MCV 90 fL (80-95); MPV 10.4 fL (8.0-11.0); Monocytes % 7.8 %; Neutrophils % 64.1 %; Platelet Count 210 10^3/uL (130-400); RBC 4.81 10^6/uL (4.36-5.78); RDW 12.7 % (11.8-14.1); WBC 6.63 10^3/uL (4.4-10.8)
[2023-11-18 12:07] LABS: ALT 43 U/L (16-63); AST 22 U/L (15-37); Albumin 3.9 g/dL (3.4-5.0); Alkaline Phosphatase 63 U/L (46-116); Anion Gap 9.8 mmol/L (3-11); BUN 19 mg/dL (7-18); Bilirubin, Total 0.69 mg/dL (0.2-1.0); CO2 28.2 mmol/L (21.0-32.0); Calcium 8.9 mg/dL (8.5-10.1); Chloride 103 mmol/L (98-107); Estimated GFR 77.04 (mL/min/1.73m2); Glucose 99 mg/dL (74-106); Potassium 3.6 mmol/L (3.5-5.1); Sodium 141 mmol/L (136-145); Total Protein 7.2 g/dL (6.4-8.2); Troponin I < 50 ng/L (< or =60)
--- NOTE | 2023-11-18 12:20 | DI.MRI_ITS ---
Exam(s) MR BRAIN WO EXAM: MR BRAIN WO CLINICAL HISTORY: cva TECHNIQUE: Multiplanar multisequence MRI of the brain was performed. COMPARISON: No exams were available for comparison FINDINGS: VENTRICLES AND EXTRA AXIAL SPACES: Normal in size and morphology for the patient's age. MIDLINE SHIFT: None. CEREBRAL PARENCHYMA: No focus of restricted diffusion to suggest acute infarct. No space-occupying le trini identified. There are few foci of hyperintense signal seen on the FLAIR and T2 weighted images i n the white matter most suggestive of chronic microvascular ischemic disease. HEMORRHAGE: None. BRAINSTEM/CEREBELLUM: Normal. CALVARIUM: Normal. VISUALIZED PARANASAL SINUSES/MASTOIDS:There is a mucous retention cyst in the left maxillary sinus. [place]: Normal flow void. PITUITARY GLAND: Unremarkable. OTHER FINDINGS: None. IMPRESSION: 1. No evidence of an acute infarct. No acute intracranial process. 2. Age-related cerebral atrophy and chronic microvascular ischemic disease. DATA REPOSITORY:
--- NOTE | 2023-11-18 12:37 | W.ED.GENAD ---
Discharge Plan Disposition Patient Disposition: Home Condition: Stable Discharge Details Clinical Impression: Dizziness Primary Care Provider: Saleem Vazquez ED Provider: Raymond Barnhart Home Meds and New Rx's Prescriptions: New meclizine 25 mg tablet 25 mg PO TID PRN (Reason: dizziness) Qty: 20 0RF No Action cholecalciferol (vitamin D3) 125 mcg (5,000 unit) tablet 125 mcg PO DAILY hydrochlorothiazide 25 mg tablet 25 mg PO DAILY Qty: 90 3RF latanoprost 0.005 % drops 1 drp ophthalmic (eye) DAILY Qty: 7.5 5RF omeprazole 40 mg capsule,delayed release(DR/EC) 40 mg PO DAILY Qty: 90 4RF pravastatin 20 mg tablet 20 mg PO HS Qty: 90 4RF cyanocobalamin (vitamin B-12) [Vitamin B-12] 1,000 MCG tablet 1,000 mcg PO DAILY epinephrine 0.3 MG/0.3 ML auto-injector 0.3 mg IM ONCE Qty: 2 Patient Comments: pt. has not had to use Rx Instructions: PRN FOR ANAPHYLAXIS Discharge Instructions Instructions: Dizziness, Adult ED Additional Instructions: Take meclizine as needed for dizziness Return to the emergency department if you have worsening symptoms You have been referred to neurology for follow-up management of recurrent vertigo if needed Referrals: Ginger Rand MD [ [facility] STAFF PHYSICIAN] - (vertigo ) [facility] General Date/Time Provider Initiated Documentation: 11/18/23 11:32. Limitations to Documentation: no limitations. Information obtained by: patient. HPI Narrative: 78-year-old female with past medical history of hypertension presents for evaluation of dizziness. He reports onset of initial dizzy symptoms 3 days prior. He reports intermittent brief episodes of the dizziness. He reports that they are worsened with turning his head, particularly to the right, or when he looks up or down. He denies any headache. Denies any chest pain, nausea or vomiting associated with the dizziness. He has not had any falls while being dizzy. He reports that he has had ear ringing over the last year, but this is unchanged since Saturday. He reports that today he started feeling dizzy this morning and it is persisted. This has been the worst of the 3 days of the dizziness. He has not had any vomiting. He reports that he occasionally has double vision, when he is feeling dizzy. He denies any blurry vision. He denies any stroke history. Related Data Home Medications Medication Instructions Recorded Confirmed cyanocobalamin (vitamin B-12) 1,000 mcg PO DAILY 04/11/13 11/18/23 1,000 mcg tablet (Vitamin B-12) epinephrine 0.3 mg/0.3 mL 0.3 mg IM ONCE #2 pens 04/11/13 11/18/23 injection, auto-injector cholecalciferol (vitamin D3) 125 125 mcg PO DAILY 05/30/21 11/18/23 mcg (5,000 unit) tablet hydrochlorothiazide 25 mg tablet 25 mg PO DAILY #90 tabs 06/04/23 11/18/23 latanoprost 0.005 % eye drops 1 drp ophthalmic (eye) DAILY #7.5 06/04/23 11/18/23 mL omeprazole 40 mg capsule,delayed 40 mg PO DAILY #90 tab-caps 06/04/23 11/18/23 release pravastatin 20 mg tablet 20 mg PO HS #90 tab-caps 06/04/23 11/18/23 meclizine 25 mg tablet 25 mg PO TID PRN dizziness #20 tabs 11/18/23 Previous Rx's Medication Instructions Recorded hydrochlorothiazide 25 mg tablet 25 mg PO DAILY #90 tabs 06/04/23 latanoprost 0.005 % eye drops 1 drp ophthalmic (eye) DAILY #7.5 06/04/23 mL omeprazole 40 mg capsule,delayed 40 mg PO DAILY #90 tab-caps 06/04/23 release pravastatin 20 mg tablet 20 mg PO HS #90 tab-caps 06/04/23 meclizine 25 mg tablet 25 mg PO TID PRN dizziness #20 tabs 11/18/23 Allergies Allergy/AdvReac Type Severity Reaction Status Date / Time bee pollen Allergy Severe Anaphylaxsi Verified 11/18/23 13:23 s influenza virus vaccine, Allergy Severe High Verified 11/18/23 13:23 specific fever, hallucinations nickel Allergy Skin Rash Verified 11/18/23 13:23 simvastatin AdvReac Intermediate MYALGIAS Verified 11/18/23 13:23 Maple leaves Allergy Anaphylaxis Uncoded 11/18/23 13:23 General Stated Complaint: Dizzy/Sync JULIANNA: 3 Exam Narrative Exam Narrative: Review of Systems: All systems reviewed & are unremarkable except as noted in HPI and below Well-developed, no acute distress NCAT PERRL, normal conjunctiva + Nystagmus when looking to the right Bilateral TMs without effusion or bulging RRR no murmur Unlabored respiratory effort, clear bilaterally Nondistended abdomen Extremities w/o deformity, no cyanosis, no edema No rashes or lesions. + Reported diplopia No vertical nystagmus + Past-pointing, with the right upper extremity No pronator drift + Positive Romberg Appropriate mood and affect Course Vital Signs Vital signs: Vital Signs Temperature 37.0 C 11/18/23 10:59 Pulse 69 11/18/23 10:59 Respiratory Rate 16 11/18/23 10:59 Blood Pressure 159/82 H 11/18/23 10:59 Pulse Oximetry 96 11/18/23 10:59 Temperature 37.0 C 11/18/23 10:59 Temperature Source Tympanic 11/18/23 10:59 Pulse 69 11/18/23 10:59 Respiratory Rate 16 11/18/23 11:10 Respiratory Effort Normal 11/18/23 11:10 Respiratory Depth Normal 11/18/23 11:10 Respiratory Pattern Normal 11/18/23 11:10 Blood Pressure 159/82 H 11/18/23 10:59 Blood Pressure Position Sitting 11/18/23 10:59 Pulse Oximetry 96 11/18/23 10:59 Oxygen Delivery Method Room Air 11/18/23 10:59 Oxygen Flow Rate 0 11/18/23 10:59 Pain Level 0 11/18/23 10:59 Lab/Test Results Lab/Test Results: Laboratory Tests Range/Units 11/18/23 11:20 WBC (4.4-10.8) 10^3/uL 6.63 RBC (4.36-5.78) 10^6/uL 4.81 Hgb (13.5-17.5) g/dL 14.5 Hct (40.0-50.0) % 43.1 MCV (80-95) fL 90 MCH (27.0-33.0) pg 30.1 MCHC (32.0-36.0) % 33.6 RDW (11.8-14.1) % 12.7 Plt Count (130-400) 10^3/uL 210 MPV (8.0-11.0) fL 10.4 Immature Gran % % 0.3 Neutrophils % % 64.1 Lymphocytes % % 22.9 Monocytes % % 7.8 Eosinophils % % 4.4 Basophils % % 0.5 Nucleated RBC % (0.0-0.3) % 0.0 Absolute Neutrophils (1.2-6.7) 10^3/uL 4.25 Absolute Lymphocytes (1.2-3.4) 10^3/uL 1.52 Absolute Monocytes (0.1-0.8) 10^3/uL 0.52 Absolute Eosinophils (0.0-0.7) 10^3/uL 0.29 Absolute Basophils (0.0-0.2) 10^3/uL 0.03 Sodium (136-145) mmol/L 141 Potassium (3.5-5.1) mmol/L 3.6 Chloride (98-107) mmol/L 103 Carbon Dioxide (21.0-32.0) mmol/L 28.2 Anion Gap (3-11) mmol/L 9.8 BUN (7-18) mg/dL 19 H Creatinine (0.70-1.30) mg/dL 1.0 Est GFR (CKD-EPI 2020) (mL/min/1.73m2) 77.04 Glucose (74-106) mg/dL 99 Calcium (8.5-10.1) mg/dL 8.9 Total Bilirubin (0.2-1.0) mg/dL 0.69 AST (15-37) U/L 22 ALT (16-63) U/L 43 Alkaline Phosphatase (46-116) U/L 63 Troponin I (< or =60) ng/L < 50 Total Protein (6.4-8.2) g/dL 7.2 Albumin (3.4-5.0) g/dL 3.9 Medical Decision Making Evaluation of dizziness. Initial differential includes vertigo, electrolyte derangement, given patient's hard neurologic findings, I am highly suspicious for CVA. Given that his symptoms started 3 days ago, he is not within the window to treat with lytics. I will send for MRI. Will get lab work to evaluate for other etiologies. Lab work reviewed. Normal white blood cell count. No evidence of anemia. Electrolytes without derangement. Renal function within normal limits. Cardiac enzymes negative. The patient did get an MRI and I discussed these results with the radiologist, there is no evidence of vascular insufficiency or CVA. Given the negative MRI, I treated the patient with meclizine. This resulted in complete resolution of his symptoms. There are no additional findings noted. The patient will be discharged in good condition. Will send a prescription for meclizine to the pharmacy. Given his age and normal vertigo symptoms will refer to neurology for further evaluation and ongoing management. Medical Records Medical records reviewed: Yes I reviewed the patient's medical records. Lab Data Lab results reviewed: Yes I reviewed the patient's lab results. 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 Randolph; H/O left shoulder rotator tendonitis Surgical History S/P colonoscopy (~07/27/19) 2014- Tubular adenoma Rotator Cuff Repair 2006 2007 Repair of inguinal hernia B/L Family History Mother , age 69 Essential hypertension Substance abuse Hyperlipidemia Smoker COPD (chronic obstructive pulmonary disease) Father , age 63 Essential hypertension Substance abuse Heart disease Hyperlipidemia Smoker Sister , age 67 Hemochromatosis S/P LIVER TRANSPLANT Lung cancer AAA (abdominal aortic aneurysm) Sister , age 68 Alcohol abuse Smoker Hyperlipidemia Maternal Grandfather Heart disease Paternal Grandfather Heart disease Brother No problems noted. Sister No problems noted. Brother No problems noted. Social History Smoking/Tobacco Use Status: Former Tobacco Use tobacco type: cigarettes and smokeless tobacco Quit Date: 05/27/74 Tobacco: How many years used: 30 Second Hand Exposure: Yes Smoking risk assessment performed?: Yes Alcohol Intake: former Drug use: Never Substance use type: does not use Adopted: No Caregiver/Support person: No Foster care: No Household members: spouse Housing: house Communication Needs: None Education Level: high school Do you need help understanding health information?: Rarely current occupation: Retired Pets and animals: Yes Pets and animals: cat(s) Sexually active: No Do you think of yourself as: straight/heterosexual Current gender identity: male What is your relationship status?: How often do you talk on the phone with friends or family?: once per week How often do you get together with friends or relatives?: once per week How often do you attend congregational or shinto services?: decline to answer Do you belong to any clubs or organized social groups?: yes Panel score (0-1 are the most socially isolated patients): 2 What type of physical activity do you participate in: walking and other Details: FORESTRY Duration: > 90 minutes/day Frequency: 3-4 times per week Ashely/Anabaptism: No preference Special ashely needs: No Agree to transfusion: Yes Seatbelt use: always Helmet use: Yes Helmet use: always Drive intox or ride w/intox locomotive driver: No Working smoke detector in home: Yes Carbon monox detector in home: No Firearms in home: Yes Firearms unloaded and locked: Yes Do you feel safe at home: Yes Do you feel safe in your relationship?: Yes Victim of physical abuse: No Victim of emotional abuse: No Victim of sexual abuse: No Additional Social history: unable to assess privately
--- NOTE | 2023-11-18 12:45 | DI.MRI_ITS ---
Exam(s) MR ANGIO BRAIN WO CLINICAL HISTORY: dizzy. TECHNIQUE: Multiplanar multisequence MRA of the brain was performed. COMPARISON: MR MR BRAIN WO from 11/18/2023 FINDINGS: Carotid Arteries: No aneurysm, occlusion or significant stenosis. Anterior Cerebral Arteries: Right: No aneurysm, occlusion or significant stenosis. Left: No aneurysm, occlusion or significant stenosis. The left A1 segment is incomplete. The left a nterior cerebral artery receives its flow via the anterior communicating artery. Middle Cerebral Arteries: Right: No aneurysm, occlusion or significant stenosis. Left: No aneurysm, occlusion or significant stenosis. Posterior Cerebral Arteries: Right: No aneurysm, occlusion or significant stenosis. Left: No aneurysm, occlusion or significant stenosis. Vertebral Arteries: Right: No aneurysm, occlusion or significant stenosis. Left: No aneurysm, occlusion or significant stenosis. Basilar Artery: No aneurysm, occlusion or significant stenosis. IMPRESSION: Normal MRA examination of the [place]. DATA REPOSITORY:
--- NOTE | 2023-11-18 13:02 | DI.MRI_ITS ---
Exam(s) MR ANGIO NECK WO EXAM: MR ANGIO NECK WO CLINICAL HISTORY: dizzy. TECHNIQUE: Multiplanar multisequence MRA of the Neck was performed. COMPARISON: No exams were available for comparison FINDINGS: Common Carotid: Right: No dissection, occlusion or significant stenosis. Left: No dissection, occlusion or significant stenosis. External Carotid: Right: No evidence of occlusion or significant stenosis. Left: No evidence of occlusion or significant stenosis. Internal Carotid: Right: No dissection, occlusion or significant stenosis. Left: No dissection, occlusion or significant stenosis. Vertebral Artery: Right: No dissection, occlusion or significant stenosis. Left: No dissection, occlusion or significant stenosis. The visualized paraspinal soft tissues are unremarkable. IMPRESSION: No evidence of occlusion or significant stenosis. DATA REPOSITORY:
[2023-11-18] MEDS: Meclizine 25 MG TAB PO (13:19)
--- NOTE | 2023-11-20 15:21 | NUR.NOTE ---
Nursing Note: accessed pTs discharge information per Neurology on the phone requesting refferral. no refferral found in chart.
== END 2023-11-18 14:33 | disposition home or self-care (01) ==
PROVIDERS: Emergency Provider Emergency Medicine; PCP Family Medicine
DX: R42 Dizziness and giddiness (principal); I10 Essential (primary) hypertension; E78.5 Hyperlipidemia, unspecified; Z87.891 Personal history of nicotine dependence
CPT/HCPCS: 36415; 70544; 70547; 80053; 93005; 99285; 70551; 84484; 85025; 93010; 99284

== ENCOUNTER 2024-08-11 00:46 | Outpatient (CLI) | payer OTHER, SELFPAY ==
--- NOTE | 2024-08-11 06:00 | DI.RAD_ITS ---
Exam(s) XR SHOULDER RT COMPLETE 2+V EXAM: XR SHOULDER RT COMPLETE 2+V CLINICAL HISTORY: rt shoulder pain,h/o rc repair,m25.511. TECHNIQUE: 2D digital imaging was performed. Five views. COMPARISON: MR MRI - L UPPER JOINT WO CONT from 04/09/2008 FINDINGS: BONES: No acute fracture is present. No bony destructive lesion is seen. Prominent spurring at the u ndersurface of the acromion. Metallic anchor in the humeral head consistent prior rotator cuff surge ry. Spurring of the greater tuberosity. Mild spurring at the glenoid and adjacent aspect of the hum eral head. JOINTS: Mild superior subluxation of the humerus could indicate chronic rotator cuff tear. No disloc ation present. Resection of the distal clavicle. SOFT TISSUE: Normal. IMPRESSION: Postsurgical changes prominent spurring new surface of the acromion. Mild superior subluxation of th e humerus could indicate chronic rotator cuff tear. DATA REPOSITORY: RADIATION DOSE DELIVERED:
== END 2024-08-11 01:06 ==
LOC: DI 00:47
PROVIDERS: PCP Family Medicine; Visit Provider Family Medicine
DX: M25.511 Pain in right shoulder (principal)
CPT/HCPCS: 73030

== ENCOUNTER 2024-11-23 01:27 | Outpatient (CLI) | payer OTHER, SELFPAY ==
--- NOTE | 2024-11-23 07:15 | DI.RAD_ITS ---
Exam(s) XR KNEE LT 3V AP,LAT,BAR EXAM: XR KNEE LT 3V AP,LAT,BAR CLINICAL HISTORY: left knee pain,M25.562. TECHNIQUE: 2D digital imaging was performed. Three views. COMPARISON: None FINDINGS: BONES: No acute fracture is present. No bony destructive lesion is seen. Enthesophyte at the quadriceps insertion on the patella. JOINTS: Moderate narrowing of the medial femoral tibial joint space and periarticular spurring. No joint effusion is seen. SOFT TISSUE: Normal. IMPRESSION: Moderate degenerative changes of the medial femoral tibial joint space. DATA REPOSITORY: RADIATION DOSE DELIVERED:
== END 2024-11-23 01:47 ==
LOC: DI 01:27
PROVIDERS: PCP Family Medicine; Visit Provider Nurse Practitioner Family
DX: M17.12 Unilateral primary osteoarthritis, left knee (principal)
CPT/HCPCS: 73562